=== PATIENT | female | born 1965 | race Caucasian/White ===

== ENCOUNTER → 2017-12-22 | Day surgery (SDC) | payer OTHER, MEDICARE ==
[~2017-12-22] VITALS: Ht 165.1 cm; Wt 153.3 kg
--- NOTE | 2017-12-22 09:57 | Operative Report ---
Operative/Inv Procedure Report Surgery Date: 12/22/17 Name of Procedure: Urethral sling and cystoscopy Pre-Operative Diagnosis: Stress urinary incontinence Post-Operative Diagnosis: Same Estimated Blood Loss: less than 50ml (200cc) Surgeon/Oncology Nurse: Kia Abbott MD Anesthesia: laryngeal mask airway Implants: Vaginal mesh Complications: None Condition: Stable Operative Indication: Stress urinary incontinence Operative/Procedure Note Note: This a 52-year-old female Mercedez Charlton. She has a history of stress urinary incontinence that is very bothersome and urge incontinence. She was given the risks benefits and alternatives of urethral sling which is vaginal mesh in the office and in the holding area. All questions were answered regarding the vaginal mesh and the possible complications. The consent was signed in the holding area. Her was present as well. Patient was identified in the holding area and brought to the operating room placed on the operating table in the supine position. Timeout was performed. IV antibiotics were infused. SCDs were placed on the lower extremities. She was placed in the dorsolithotomy position. She was shaved and the genitalia region. She was prepped and draped in the standard sterile fashion. Billings catheter was placed to empty the bladder and then was clamped and placed on the patient's abdomen. Wood retractor was placed for better visualization. 1% lidocaine with epinephrine was infiltrated into the anterior vaginal wall beneath the urethra. An incision was made with #15 blade approximately 2 inches in length underneath the urethra. Vaginal flaps are created taking care not to injure the urethra. The dissection was difficult due to the patient's body habitus. The Altis Sling kit was then opened and the trochars provided was used to place the sling first in the left obturator fascia followed by the right side. The trochars did not flaherty the vaginal fornices. The sling was tightened using the Prolene suture. Was in a nice tension-free manner with the DeBakey between the urethra and the sling. There was copiously irrigated with bacitracin irrigation. A cystoscopy was performed and the bladder and the urethra globally inspected. There were no abnormalities and the bladder or the urethra. The ureteral orifices were in their normal anatomic position. The bladder was emptied and cystoscope was removed. The Prolene tightening suture was cut. The incision was closed with 3-0 Vicryl running locking every third suture. 2 inch vaginal packing impregnated with bacitracin ointment was placed into the vaginal vault. Sponge and needle count were correct at the end of the case. Patient tolerated procedure well. Findings: No mesh in the urethra, bladder, or vaginal fornices. Normal bladder anatomy. Discharge Disposition: PACU
== END ==
LOC: STS 01:53
DX: N39.3 Stress incontinence (female) (male) (principal); N39.41 Urge incontinence; R35.0 Frequency of micturition; I72.2 Aneurysm of renal artery; I10 Essential (primary) hypertension; Z86.73 Personal history of transient ischemic attack (TIA), and cerebral infarction without residual deficits; Z87.891 Personal history of nicotine dependence
CPT/HCPCS: C1771; J0131; J0744; J2250